=== PATIENT | male | born 1985 | race Two or more races ===

== ENCOUNTER 2020-10-25 14:27 | Emergency (ER) | payer OTHER ==
[~2020-10-25] VITALS: Ht 180.3 cm; Wt 83.9 kg
[2020-10-25 14:34] VITALS: BP 143/81
== END 2020-10-25 17:19 | disposition home or self-care (01) ==
LOC: ER 14:41
DX: J20.9 Acute bronchitis, unspecified (principal); F17.210 Nicotine dependence, cigarettes, uncomplicated; Z20.828 Contact with and (suspected) exposure to other viral communicable diseases
CPT/HCPCS: 36415; 71045; 87426; 99284; C9803; U0003